=== PATIENT | male | born 1990 | race Caucasian/White ===

== ENCOUNTER 2017-03-16 20:32 | Emergency (ER) | payer MEDICARE, MEDICAID ==
[~2017-03-16] VITALS: Ht 188 cm; Wt 104.5 kg
[2017-03-16 20:41] VITALS: BP 130/70; PULSE 95; RESP 16; O2SAT 100
[2017-03-16 21:17] LABS: BASOPHILS % (AUTO) 0.2 % (0-3); EOSINOPHILS % (AUTO) 1.7 % (0-5); MONOCYTES % (AUTO) 8.8 % (4-12); Mean Corpuscular Hemoglobin 31.9 pg (27.0-35.0); Mean Corpuscular Volume 89.2 fL (81-100); NEUTROPHILS % (AUTO) 66.7 % (40-74); Platelet Count 240 bil/L (150-400)
--- NOTE | 2017-03-16 22:58 | ED.REPORT ---
HPI-General Illness Date of Service Mar 16, 2017 ED Provider: Omega Hall MD Patient is a 26 year old male with a history of panic disorder, ocular migraines and Tourette's who presents to the ED complaining of feeling mentally lethargic for a few hours. Associated symptoms include dizziness, blurry vision , tinnitus, difficulty walking, lower left side back pain (that he states he's not sure if it's related because he's experienced similar pain before), tingling in his jaw and lips, feeling like his arms were "slow to move" and that his "brain wasn't working right and slowed down". The patient reports that he was at work and was feeling fine, then suddenly began to feel dizzy. When he looked up at the lights, he started having blurry vision and ringing in his ears. Patient states that he had eaten all three meals today, doesn't feel dehydrated and has never felt like this before. His symptoms have abated and he has returned to normal by the time I see him. Nursing Notes Stated Complaint: DIZZINESS/POSSIBLE LOW BLOOD SUGAR LEVELS Chief Complaint: General Complaint Nursing Notes Reviewed: Yes Allergies: Coded Allergies: No Known Allergies (Unverified , 03/16/17) General Time Seen by MD: 22:57 Chief Complaint Other (mentally lethargic) Hx Obtained From: Patient Arrived By: Walk-in Sudden in Onset?: Yes Onset Occurred: 1 - 4 hours ago Symptom Duration: 1 - 4 hours Severity: Current: No pain currently Similar Sx Previous: No Past Medical History Past Medical History Tourette's panic disorder ocular migraines Past Surgical History denies Smoking History Never Smoker Social History Alcohol Use: "Social" Drug Use: THC Occupation lives with girlfriend, Ambulatory Status Independent Review of Systems +feeling like his arms were moving slow Full Review of Systems Constitutional: Reports: Fatigue, Lethargy, Denies: Chills, Fever Eyes: Reports: Blurred bilateral Ears / Nose / Throat: Reports: Ear ringing bilateral Respiratory: Denies: Non-productive cough, Shortness of breath Musculoskeletal: Reports: Back pain Neurologic: Reports: Dizziness, Numbness, Problem walking, Denies: Headache, Lightheaded, Weakness Complete sys rev & neg: except as marked. Physical Exam Vital Signs Vital Signs Date Time Temp Pulse Resp B/P Pulse Ox O2 Delivery O2 Flow Rate FiO2 03/16/17 20:41 36.7 95 16 130/70 100 Room Air Initial VS: Reviewed General/Constitutional: Awake, Alert, No acute distress Head / Eyes: Atraumatic, Normocephalic, PERRL, EOMI Respiratory / Chest: Atraumatic, Breath sounds NL, Breath sounds = bilat, No respiratory distress Cardiovascular: Heart rate NL, Regular rhythm, Heart sounds NL Upper Extremities Upper Extremity / MS: Atraumatic, Full range of motion Skin: Atraumatic, Color NL, No rash, Warm, Dry Neurologic: Oriented X3, Speech NL, No motor deficits, No sensory deficits, CN II - XII intact, Reflexes equal bilat, Cerebellar NL Psychiatric: Affect NL, Mood NL, Judgment/insight NL, Thought content NL Interpretation & Diagnostics Lab Results Interpretation Result Diagram: 03/16/17210903/16/172109 Test 03/16/17 21:10 White Blood Count 9.6th/mm3 (3.8-10.1) Red Blood Count 4.74mil/mm3 (4.40-5.80) Hemoglobin 15.1g/dL (13.8-17.2) Hematocrit 42.3% (41.0-50.0) Mean Corpuscular Volume 89.2fL (81-100) Mean Corpuscular Hemoglobin 31.9pg (27.0-35.0) Mean Corpuscular Hemoglobin Concent 35.7% (32.0-37.0) Red Cell Distribution Width 12.1% (12.3-15.4) Platelet Count 240bil/L (150-400) Neutrophils (%) (Auto) 66.7% (40-74) Lymphocytes (%) (Auto) 22.4% (14-46) Monocytes (%) (Auto) 8.8% (4-12) Eosinophils (%) (Auto) 1.7% (0-5) Basophils (%) (Auto) 0.2% (0-3) Sodium Level 140mEq/L (134-144) Potassium Level 4.0mEq/L (3.5-5.2) Chloride Level 102mEq/L (97-108) Carbon Dioxide Level 23mmol/L (18-29) Blood Urea Nitrogen 12mg/dL (6-20) Creatinine 0.85mg/dL (0.76-1.27) Estimat Glomerular Filtration Rate 114mL/min (>59) Glucose Level 94mg/dL (60-99) Calcium Level 9.1mg/dL (8.5-10.1) Total Bilirubin 0.4mg/dL (0.0-1.2) Aspartate Amino Transf (AST/SGOT) 16U/L (0-50) Alanine Aminotransferase (ALT/SGPT) 23U/L (0-44) Alkaline Phosphatase 51U/L (25-150) Total Protein 7.3g/dL (6.4-8.4) Albumin 4.2g/dL (3.4-5.0) Hold Valadez Top Tube Received (Received) Re-Eval/Medical Decision Time of Eval: 23:11 Re-Evaluation/Progress Note: Patient states that he is starting to feel more like himself. Discussed lab results. Time of Eval: 23:30 Patient Status: Condition improved Re-Evaluation/Progress Note: Discussed plans for follow up and discharge. Patient understands and agree to plan. All questions were addressed. Counseled Regarding: Diagnosis, Lab results, Need for follow-up, When/why to return to ED Discharge & Departure Primary Impression: Transient neurologic deficit Disposition: Home Discharge Condition All VS Reviewed: Yes Condition: Stable Additional Instructions: The reason for the symptoms that you experienced today is not clear to me. I do not believe that they represent a stroke, low blood sugar or any other immediately dangerous metabolic condition. Blood testing and vital signs and physical examination were entirely normal. It is conceivable that your symptoms were related to panic in some way but there is no way to say this for sure based on the evaluation I did. I would recommend follow-up with a general psychiatrist and I would also consider discussion with a Tourette's specialist. I wish you luck with your future endeavors. Referrals: Edna Reid (PCP) Ervin Attestation Portions of this note were transcribed by Anabela Mireles. I, Dr. Hall personally performed the history, physical exam and medical decision-making; I reviewed and confirmed the accuracy of the information in the transcribed note. Signed by: Ervin Marcelo, 03/16/17 copies to: Edna Reid Kirk H MD Mar 16, 2017 22:58 Kiara Mireles Mar 16, 2017 23:07
[2017-03-16 23:49] VITALS: BP 128/72; PULSE 89; RESP 16; O2SAT 99
== END 2017-03-16 23:50 | disposition home or self-care (01) ==
LOC: SED 20:32
DX: R29.818 Other symptoms and signs involving the nervous system (principal); R42 Dizziness and giddiness; H53.8 Other visual disturbances; M54.5 Low back pain